=== PATIENT | male | born 2000 | race African-American/Black ===

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

== ENCOUNTER 2019-04-28 17:50 | Emergency (ER) | payer BC ==
[~2019-04-28] VITALS: Ht 177.8 cm; Wt 77.3 kg
[2019-04-28 17:56] VITALS: TEMP 99.5
[2019-04-28] MEDS ORDERED: PRINIVIL10 MG PO (18:01)
[2019-04-28 18:20] LABS: BASO # 0.1 (0.0-0.2); BASO % 0.9 % (0.0-2.0); EOS % 0.5 % (0-4.0); GRAN # 3.9 (1.4-6.5); GRAN % 48.9 % (42.2-75.2); HEMATOCRIT 46.3 % (42.0-52.0); HEMOGLOBIN 16.5 g/dl (13.5-18.0); LYMPH # 3.2 (1.2-3.4); LYMPH % 39.7 % (20.0-51.0); MEAN CELL VOLUME 80 fl (80.0-100.0); MEAN CORPUSCULAR HEMOGLOBIN 28 pg (27.0-31.0); MEAN CORPUSCULAR HGB CONC 36 g/dl (33.0-37.0); MEAN PLATELET VOLUME 10.9 fl (7.4-10.4); MONO # 0.8 (0.1-0.6); MONO % 9.6 % (1.7-9.3); PLATELET COUNT 261 K/mm3 (130-400); REDCELL DISTRIBUTION WIDTH-CV 11.9 % (11.5-14.5)
[2019-04-28 18:33] LABS: ALANINE AMINOTRANSFERASE 147 U/L (21-72); ALBUMIN 4.7 gm/dL (3.5-5.0); ALKALINE PHOSPHATASE 92 U/L (50-136); ANION GAP 11 mmol/L (7-16); AST,SGOT 69 U/L (15-37); BILIRUBIN,TOTAL 1.9 mg/dL (0.0-1.0); BLOOD UREA NITROGEN 13 mg/dL (9-20); C-REACTIVE PROTEIN < 0.5 mg/dL (0.0-0.9); CALCIUM 9.7 mg/dL (8.4-10.2); CARBON DIOXIDE 30 mmol/L (22-30); CHLORIDE 95 mmol/L (98-107); CREATININE, serum 1.12 (0.66-1.25); GLUCOSE 101 mg/dL (74-106); LIPASE 101 U/L (23-300); POTASSIUM 3.5 mmol/L (3.4-5.0); SODIUM 136 mmol/L (137-145); TOTAL PROTEIN 8.2 gm/dL (6.4-8.2)
[2019-04-28 19:01] LABS: COLLECTION METHOD CLEAN CATCH
[2019-04-28 19:10] LABS: MUCOUS Present /lpf; PH 6 (5-8); SQUAMOUS EPITHELIAL 0-2 /hpf; URINE APPEARANCE Hazy; URINE BACTERIA None Seen /hpf; URINE BILIRUBIN Negative (NEGATIVE); URINE BLOOD Negative (NEGATIVE); URINE COLOR Amber; URINE GLUCOSE Negative (NEGATIVE); URINE KETONE Trace (NEGATIVE); URINE LEUKOCYTE ESTERASE Negative (NEGATIVE); URINE NITRATE Negative (NEGATIVE); URINE PROTEIN(semi-quant) 1+ (NEGATIVE); URINE RBC 0-2 /hpf; URINE UROBILINOGEN >=4.0 mg/dL (NEGATIVE)
[2019-04-28] MEDS ORDERED: ZOFRAN 4MG T4 MG/TAB PO (20:09)
[2019-04-28] MEDS ORDERED: PRILOTC PO (20:09)
[2019-04-28] MEDS ORDERED: CEPHALEXIN500 M1 PO (20:10)
[2019-04-28 20:31] VITALS: BP 170/99; PULSE 48
== END 2019-04-28 20:33 | disposition home or self-care (01) ==
LOC: COL.ER 17:50
PROVIDERS: Emergency Medicine
DX: R11.2 Nausea with vomiting, unspecified (principal); R74.0 Nonspecific elevation of levels of transaminase and lactic acid dehydrogenase [LDH]; I10 Essential (primary) hypertension
CPT/HCPCS: A4216; J0696; J2405; J7030

== ENCOUNTER 2019-06-11 12:21 | Emergency (ER) | payer SELFPAY ==
[~2019-06-11] VITALS: Ht 175.3 cm; Wt 84.1 kg
[~2019-06-11 12:21] MED LIST: CEPHALEXIN500 M1 PO; PRILOTC PO; PRINIVIL10 MG PO; ZOFRAN 4MG T4 MG/TAB PO
[2019-06-11 12:28] VITALS: TEMP 98
[2019-06-11 13:10] LABS: COLLECTION METHOD CLEAN CATCH
[2019-06-11 13:12] LABS: BASO % 0.4 % (0.0-2.0); GRAN # 6.3 (1.4-6.5); HEMATOCRIT 47.2 % (42.0-52.0); HEMOGLOBIN 16.2 g/dl (13.5-18.0); LYMPH # 1.7 (1.2-3.4); LYMPH % 20.3 % (20.0-51.0); MEAN CELL VOLUME 84 fl (80.0-100.0); MEAN CORPUSCULAR HEMOGLOBIN 29 pg (27.0-31.0); MEAN CORPUSCULAR HGB CONC 34 g/dl (33.0-37.0); MEAN PLATELET VOLUME 11.2 fl (7.4-10.4); MONO # 0.3 (0.1-0.6); MONO % 3.9 % (1.7-9.3); PLATELET COUNT 203 K/mm3 (130-400); RED BLOOD COUNT 5.65 M/mm3 (4.20-5.60); REDCELL DISTRIBUTION WIDTH-CV 12.6 % (11.5-14.5)
[2019-06-11 13:17] LABS: MUCOUS Present /lpf; PH 6 (5-8); SQUAMOUS EPITHELIAL 0-2 /hpf; URINE APPEARANCE Clear; URINE BACTERIA None Seen /hpf; URINE BILIRUBIN Negative (NEGATIVE); URINE BLOOD Negative (NEGATIVE); URINE COLOR Yellow; URINE GLUCOSE Negative (NEGATIVE); URINE KETONE 2+ (NEGATIVE); URINE LEUKOCYTE ESTERASE Negative (NEGATIVE); URINE NITRATE Negative (NEGATIVE); URINE PROTEIN(semi-quant) 2+ (NEGATIVE); URINE UROBILINOGEN >=4.0 mg/dL (NEGATIVE)
[2019-06-11 13:37] LABS: ALANINE AMINOTRANSFERASE 20 U/L (21-72); ALBUMIN 4.9 gm/dL (3.5-5.0); ALKALINE PHOSPHATASE 97 U/L (50-136); ANION GAP 12 mmol/L (7-16); AST,SGOT 36 U/L (15-37); BILIRUBIN,TOTAL 1.4 mg/dL (0.0-1.0); BLOOD UREA NITROGEN 12 mg/dL (9-20); CALCIUM 9.9 mg/dL (8.4-10.2); CARBON DIOXIDE 23 mmol/L (22-30); CHLORIDE 105 mmol/L (98-107); CREATININE, serum 0.86 (0.66-1.25); GLUCOSE 102 mg/dL (74-106); LIPASE 101 U/L (23-300); POTASSIUM 4.2 mmol/L (3.4-5.0); SODIUM 139 mmol/L (137-145); TOTAL PROTEIN 8.3 gm/dL (6.4-8.2)
[2019-06-11 13:41] LABS: C-REACTIVE PROTEIN < 0.5 mg/dL (0.0-0.9)
[2019-06-11] MEDS ORDERED: ZOFRAN ODT4 MG PO (13:52)
[2019-06-11] MEDS ORDERED: PRILOSEC 20MG20 MG PO (13:52)
[2019-06-11 14:01] VITALS: BP 170/101; PULSE 42
== END 2019-06-11 14:06 | disposition home or self-care (01) ==
LOC: COL.ER 12:21
PROVIDERS: Family Medicine
DX: I10 Essential (primary) hypertension (principal); K29.70 Gastritis, unspecified, without bleeding
CPT/HCPCS: C9113; J2405; J7030

== ENCOUNTER 2019-06-15 20:51 | Emergency (ER) | payer SELFPAY ==
[~2019-06-15] VITALS: Ht 175.3 cm; Wt 77.3 kg
[~2019-06-15 20:51] MED LIST changes: +PRILOSEC 20MG20 MG PO; +ZOFRAN ODT4 MG PO
[2019-06-15 21:03] VITALS: BP 151/93; TEMP 97.7
[2019-06-15 23:41] LABS: BASO % 0.5 % (0.0-2.0); EOS % 0.1 % (0-4.0); GRAN # 4.6 (1.4-6.5); GRAN % 58.9 % (42.2-75.2); HEMATOCRIT 50.3 % (42.0-52.0); HEMOGLOBIN 17.4 g/dl (13.5-18.0); LYMPH # 1.9 (1.2-3.4); LYMPH % 24.2 % (20.0-51.0); MEAN CELL VOLUME 83 fl (80.0-100.0); MEAN CORPUSCULAR HEMOGLOBIN 29 pg (27.0-31.0); MEAN CORPUSCULAR HGB CONC 35 g/dl (33.0-37.0); MEAN PLATELET VOLUME 11.6 fl (7.4-10.4); MONO # 1.2 (0.1-0.6); MONO % 15.7 % (1.7-9.3); PLATELET COUNT 222 K/mm3 (130-400); RED BLOOD COUNT 6.07 M/mm3 (4.20-5.60); REDCELL DISTRIBUTION WIDTH-CV 12.7 % (11.5-14.5)
[2019-06-15 23:47] LABS: ALANINE AMINOTRANSFERASE 16 U/L (21-72); ALBUMIN 4.9 gm/dL (3.5-5.0); ALKALINE PHOSPHATASE 83 U/L (50-136); ANION GAP 11 mmol/L (7-16); AST,SGOT 24 U/L (15-37); BLOOD UREA NITROGEN 23 mg/dL (9-20); C-REACTIVE PROTEIN < 0.5 mg/dL (0.0-0.9); CALCIUM 9.9 mg/dL (8.4-10.2); CARBON DIOXIDE 25 mmol/L (22-30); CHLORIDE 103 mmol/L (98-107); CREATININE, serum 1.09 (0.66-1.25); GLUCOSE 99 mg/dL (74-106); LIPASE 347 U/L (23-300); POTASSIUM 3.6 mmol/L (3.4-5.0); SODIUM 139 mmol/L (137-145); TOTAL PROTEIN 8.3 gm/dL (6.4-8.2)
[2019-06-16] MEDS ORDERED: NORCO 325 MG-51 TAB PO (00:39)
[2019-06-16] MEDS ORDERED: ZOFRAN ODT4 MG PO (00:40)
[2019-06-16 00:52] VITALS: PULSE 53
== END 2019-06-16 00:52 | disposition home or self-care (01) ==
LOC: COL.ER 20:51
PROVIDERS: Nurse Practitioner
DX: K85.90 Acute pancreatitis without necrosis or infection, unspecified (principal); I10 Essential (primary) hypertension; Z87.891 Personal history of nicotine dependence
CPT/HCPCS: J2405; J7030

== ENCOUNTER 2019-07-23 09:14 | Emergency (ER) | payer SELFPAY ==
[~2019-07-23] VITALS: Ht 177.8 cm; Wt 81.8 kg
[~2019-07-23 09:14] MED LIST changes: +NORCO 325 MG-51 TAB PO
[2019-07-23 09:27] VITALS: TEMP 98.4
[2019-07-23] MEDS ORDERED: CEPHALEXIN500 M1 PO (09:31)
[2019-07-23] MEDS ORDERED: ZOFRAN ODT8 MG PO (09:43)
[2019-07-23 10:29] LABS: BASO % 0.3 % (0.0-2.0); GRAN # 6.7 (1.4-6.5); GRAN % 70.8 % (42.2-75.2); HEMATOCRIT 48.1 % (42.0-52.0); HEMOGLOBIN 16.8 g/dl (13.5-18.0); LYMPH # 2.1 (1.2-3.4); LYMPH % 22.5 % (20.0-51.0); MEAN CELL VOLUME 83 fl (80.0-100.0); MEAN CORPUSCULAR HEMOGLOBIN 29 pg (27.0-31.0); MEAN CORPUSCULAR HGB CONC 35 g/dl (33.0-37.0); MEAN PLATELET VOLUME 11.9 fl (7.4-10.4); MONO # 0.6 (0.1-0.6); PLATELET COUNT 232 K/mm3 (130-400); RED BLOOD COUNT 5.77 M/mm3 (4.20-5.60); REDCELL DISTRIBUTION WIDTH-CV 12.4 % (11.5-14.5)
[2019-07-23 10:36] LABS: ALANINE AMINOTRANSFERASE 27 U/L (21-72); ALBUMIN 5.2 gm/dL (3.5-5.0); ALKALINE PHOSPHATASE 86 U/L (50-136); ANION GAP 13 mmol/L (7-16); AST,SGOT 34 U/L (15-37); BILIRUBIN,TOTAL 2.1 mg/dL (0.0-1.0); BLOOD UREA NITROGEN 17 mg/dL (9-20); CALCIUM 10.1 mg/dL (8.4-10.2); CARBON DIOXIDE 23 mmol/L (22-30); CHLORIDE 105 mmol/L (98-107); CREATININE, serum 0.92 (0.66-1.25); GLUCOSE 106 mg/dL (74-106); LIPASE 150 U/L (23-300); POTASSIUM 4.3 mmol/L (3.4-5.0); SODIUM 141 mmol/L (137-145); TOTAL PROTEIN 8.9 gm/dL (6.4-8.2)
[2019-07-23 10:37] LABS: C-REACTIVE PROTEIN < 0.5 mg/dL (0.0-0.9)
[2019-07-23 11:00] VITALS: BP 177/101; PULSE 47
== END 2019-07-23 11:00 | disposition home or self-care (01) ==
LOC: COL.ER 09:14
PROVIDERS: Emergency Medicine
DX: R11.10 Vomiting, unspecified (principal); R19.7 Diarrhea, unspecified; I10 Essential (primary) hypertension
CPT/HCPCS: C9113; J2405; J7030

== ENCOUNTER 2021-03-25 10:52 | Emergency (ER) | payer SELFPAY ==
[~2021-03-25] VITALS: Ht 175.3 cm; Wt 81.8 kg
[~2021-03-25 10:52] MED LIST changes: +ZOFRAN ODT8 MG PO
[2021-03-25 11:18] VITALS: TEMP 98.3
[2021-03-25 11:55] LABS: BASO % 0.3 % (0.0-2.0); EOS % 0.1 % (0-4.0); GRAN # 6.8 (1.4-6.5); GRAN % 71.2 % (42.2-75.2); HEMATOCRIT 47.4 % (42.0-52.0); HEMOGLOBIN 16.3 g/dl (13.5-18.0); LYMPH % 20.6 % (20.0-51.0); MEAN CELL VOLUME 82 fl (80.0-100.0); MEAN CORPUSCULAR HEMOGLOBIN 28 pg (27.0-31.0); MEAN CORPUSCULAR HGB CONC 34 g/dl (33.0-37.0); MEAN PLATELET VOLUME 11.3 fl (7.4-10.4); MONO # 0.7 (0.1-0.6); MONO % 7.4 % (1.7-9.3); PLATELET COUNT 257 K/mm3 (130-400); RED BLOOD COUNT 5.75 M/mm3 (4.20-5.60); REDCELL DISTRIBUTION WIDTH-CV 12.8 % (11.5-14.5)
[2021-03-25 11:59] LABS: BILIRUBIN,TOTAL 1.3 mg/dL (0.0-1.0); CALCIUM 10.3 mg/dL (8.4-10.2); CREATININE, serum 0.95 (0.66-1.25); POTASSIUM 4.4 mmol/L (3.4-5.0)
[2021-03-25 12:22] LABS: C-REACTIVE PROTEIN 0.6 mg/dL (0.0-0.9)
[2021-03-25] MEDS ORDERED: PRINIVIL10 MG PO (12:38)
[2021-03-25] MEDS ORDERED: ZOFRAN ODT4 MG PO (12:38)
[2021-03-25 14:54] VITALS: BP 146/97; PULSE 45
== END 2021-03-25 14:55 | disposition home or self-care (01) ==
LOC: COL.ER 10:52
PROVIDERS: Nurse Practitioner
DX: R11.2 Nausea with vomiting, unspecified (principal); I10 Essential (primary) hypertension
CPT/HCPCS: J2405; J7030

== ENCOUNTER 2021-10-05 15:57 | Emergency (ER) | payer SELFPAY ==
[~2021-10-05] VITALS: Ht 177.8 cm; Wt 93.2 kg
[2021-10-05 16:46] VITALS: TEMP 98.1
[2021-10-05 17:19] LABS: BASO % 0.3 % (0.0-2.0); GRAN # 8.7 K/mm3 (1.4-6.5); GRAN % 71.6 % (42.2-75.2); HEMATOCRIT 51.9 % (42.0-52.0); HEMOGLOBIN 17.9 g/dl (13.5-18.0); LYMPH # 2.4 K/mm3 (1.2-3.4); LYMPH % 19.7 % (20.0-51.0); MEAN CELL VOLUME 83 fl (80.0-100.0); MEAN CORPUSCULAR HEMOGLOBIN 29 pg (27-31); MEAN CORPUSCULAR HGB CONC 35 g/dl (33.0-37.0); MEAN PLATELET VOLUME 11.2 fl (7.4-10.4); MONO % 8.2 % (1.7-9.3); PLATELET COUNT 232 K/mm3 (130-400); RED BLOOD COUNT 6.29 M/mm3 (4.20-5.60); REDCELL DISTRIBUTION WIDTH-CV 12.8 % (11.5-14.5)
[2021-10-05 17:39] LABS: ALBUMIN 5.1 gm/dL (3.5-5.0); C-REACTIVE PROTEIN 0.11 mg/dL (0.00-0.50); CALCIUM 10.1 mg/dL (8.4-10.2); CREATININE, serum 1.37 mg/dL (0.72-1.25); POTASSIUM 4.7 mmol/L (3.5-4.5); TOTAL PROTEIN 8.8 gm/dL (6.2-8.1)
[2021-10-05 19:09] LABS: COLLECTION METHOD CLEAN CATCH
[2021-10-05 19:21] LABS: TRICYCLIC ANTIDEPRESS URINE NEGATIVE
[2021-10-05 19:22] VITALS: BP 142/112; PULSE 46
[2021-10-05 19:24] LABS: MUCOUS Present (NOT PRESENT); PH 5 (5-8); SQUAMOUS EPITHELIAL 0-2 /hpf (0-10); URINE APPEARANCE Hazy (CLEAR/HAZY); URINE BACTERIA None Seen /hpf (NONE SEEN); URINE BILIRUBIN Positive (NEGATIVE); URINE BLOOD 1+ (NEGATIVE); URINE COLOR Amber (YELLOW); URINE GLUCOSE Negative (NEGATIVE); URINE KETONE Trace (NEGATIVE); URINE LEUKOCYTE ESTERASE Negative (NEGATIVE); URINE NITRATE Negative (NEGATIVE); URINE PROTEIN(semi-quant) 2+ (NEGATIVE); URINE RBC 0-2 /hpf (0-2); URINE UROBILINOGEN >=4.0 (NEGATIVE)
[2021-10-05] MEDS ORDERED: PRINIVIL10 MG PO (19:32)
[2021-10-05] MEDS ORDERED: ZOFRAN ODT4 MG PO (19:32)
== END 2021-10-05 19:43 | disposition home or self-care (01) ==
LOC: COL.ER 15:57
PROVIDERS: Nurse Practitioner
DX: I10 Essential (primary) hypertension (principal); R11.2 Nausea with vomiting, unspecified; F17.200 Nicotine dependence, unspecified, uncomplicated
CPT/HCPCS: J2405; J7030

== ENCOUNTER 2021-11-28 16:04 | Emergency (ER) | payer SELFPAY ==
[~2021-11-28] VITALS: Ht 175.3 cm; Wt 90.9 kg
[2021-11-28 16:55] LABS: BASO % 0.3 % (0.0-2.0); GRAN # 8.8 K/mm3 (1.4-6.5); GRAN % 75.7 % (42.2-75.2); HEMATOCRIT 49.2 % (42.0-52.0); HEMOGLOBIN 17.2 g/dl (13.5-18.0); LYMPH % 17.2 % (20.0-51.0); MEAN CELL VOLUME 80 fl (80.0-100.0); MEAN CORPUSCULAR HEMOGLOBIN 28 pg (27-31); MEAN CORPUSCULAR HGB CONC 35 g/dl (33.0-37.0); MONO # 0.8 K/mm3 (0.1-0.6); MONO % 6.5 % (1.7-9.3); PLATELET COUNT 316 K/mm3 (130-400); RED BLOOD COUNT 6.12 M/mm3 (4.20-5.60); REDCELL DISTRIBUTION WIDTH-CV 12.2 % (11.5-14.5)
[2021-11-28 17:08] LABS: ALBUMIN 5.1 gm/dL (3.5-5.0); BILIRUBIN,TOTAL 1.3 mg/dL (0.2-1.2); CALCIUM 10.1 mg/dL (8.4-10.2); CREATININE, serum 1.2 mg/dL (0.72-1.25); POTASSIUM 3.8 mmol/L (3.5-4.5); TOTAL PROTEIN 8.8 gm/dL (6.2-8.1)
[2021-11-28 17:17] LABS: TRICYCLIC ANTIDEPRESS URINE NEGATIVE
[2021-11-28] MEDS ORDERED: ZOFRAN ODT4 MG PO (17:55)
[2021-11-28 18:09] VITALS: BP 172/96; PULSE 48; TEMP 98.1
== END 2021-11-28 18:09 | disposition home or self-care (01) ==
LOC: COL.ER 16:04
PROVIDERS: Personal Emergency Response Attendant
DX: R11.2 Nausea with vomiting, unspecified (principal)
CPT/HCPCS: J7030

== ENCOUNTER 2022-04-21 09:32 | Emergency (ER) | payer OTHER ==
[~2022-04-21] VITALS: Ht 175.3 cm; Wt 86.4 kg
[2022-04-21 09:44] VITALS: TEMP 98.1
[2022-04-21 10:27] LABS: COLLECTION METHOD CLEAN CATCH
[2022-04-21 10:32] LABS: BASO % 0.2 % (0.0-2.0); GRAN # 9.9 K/mm3 (1.4-6.5); GRAN % 75.1 % (42.2-75.2); HEMATOCRIT 51.2 % (42.0-52.0); HEMOGLOBIN 17.5 g/dl (13.5-18.0); LYMPH # 2.4 K/mm3 (1.2-3.4); MEAN CELL VOLUME 82 fl (80.0-100.0); MEAN CORPUSCULAR HEMOGLOBIN 28 pg (27-31); MEAN CORPUSCULAR HGB CONC 34 g/dl (33.0-37.0); MEAN PLATELET VOLUME 11.5 fl (7.4-10.4); MONO # 0.8 K/mm3 (0.1-0.6); MONO % 6.3 % (1.7-9.3); PLATELET COUNT 275 K/mm3 (130-400); RED BLOOD COUNT 6.27 M/mm3 (4.20-5.60); REDCELL DISTRIBUTION WIDTH-CV 12.2 % (11.5-14.5)
[2022-04-21 10:38] LABS: MUCOUS Present (NOT PRESENT); SQUAMOUS EPITHELIAL None Seen /hpf (0-10); URINE BACTERIA Rare /hpf (NONE SEEN)
[2022-04-21 10:39] LABS: URINE APPEARANCE Clear (CLEAR/HAZY); URINE COLOR Amber (YELLOW)
[2022-04-21 10:40] LABS: URINE BLOOD 1+ (NEGATIVE); URINE GLUCOSE Negative (NEGATIVE); URINE KETONE 2+ (NEGATIVE); URINE NITRATE Negative (NEGATIVE); URINE PROTEIN(semi-quant) 2+ (NEGATIVE); URINE UROBILINOGEN 0.2 E.U/dL (0.2-1.0)
[2022-04-21 10:54] LABS: TRICYCLIC ANTIDEPRESS URINE NEGATIVE
[2022-04-21] MEDS ORDERED: PRINIVIL20 MG PO (11:09)
[2022-04-21] MEDS ORDERED: PROMETHAZINE12.5 M5 PO (11:11)
[2022-04-21 11:21] LABS: ALBUMIN 4.8 gm/dL (3.5-5.0); BILIRUBIN,TOTAL 1.5 mg/dL (0.2-1.2); CALCIUM 9.9 mg/dL (8.4-10.2); CREATININE, serum 1.21 mg/dL (0.72-1.25); POTASSIUM 4.7 mmol/L (3.5-4.5); TOTAL PROTEIN 8.3 gm/dL (6.2-8.1)
[2022-04-21 11:30] VITALS: BP 179/125; PULSE 78
== END 2022-04-21 11:30 | disposition home or self-care (01) ==
LOC: COL.ER 09:32
PROVIDERS: Personal Emergency Response Attendant; Physician Assistant
DX: R11.2 Nausea with vomiting, unspecified (principal); I10 Essential (primary) hypertension; R00.1 Bradycardia, unspecified; Z28.310 Unvaccinated for COVID-19
CPT/HCPCS: J0360; J2550; J7030

== ENCOUNTER 2022-11-20 08:13 | Emergency (ER) | payer OTHER ==
[~2022-11-20] VITALS: Ht 175.3 cm; Wt 86.4 kg
[~2022-11-20 08:13] MED LIST changes: +PRINIVIL20 MG PO; +PROMETHAZINE12.5 M5 PO; +ZESTRIL 10MG10 MG PO
[2022-11-20 08:17] VITALS: BP 144/92; TEMP 97.6
[2022-11-20 08:44] LABS: COLLECTION METHOD CLEAN CATCH
[2022-11-20 08:48] LABS: BASO % 0.3 % (0.0-2.0); GRAN # 10.5 K/mm3 (1.4-6.5); GRAN % 79.2 % (42.2-75.2); HEMOGLOBIN 17.6 g/dl (13.5-18.0); LYMPH # 1.8 K/mm3 (1.2-3.4); LYMPH % 13.5 % (20.0-51.0); MEAN CELL VOLUME 81 fl (80.0-100.0); MEAN CORPUSCULAR HEMOGLOBIN 28 pg (27-31); MEAN CORPUSCULAR HGB CONC 35 g/dl (33.0-37.0); MEAN PLATELET VOLUME 11.8 fl (7.4-10.4); MONO # 0.9 K/mm3 (0.1-0.6); MONO % 6.5 % (1.7-9.3); PLATELET COUNT 264 K/mm3 (130-400); RED BLOOD COUNT 6.21 M/mm3 (4.20-5.60); REDCELL DISTRIBUTION WIDTH-CV 12.6 % (11.5-14.5)
[2022-11-20 08:53] LABS: MUCOUS Present (NOT PRESENT); SQUAMOUS EPITHELIAL 0-2 /hpf (0-10); URINE APPEARANCE Hazy (CLEAR/HAZY); URINE BACTERIA Rare /hpf (NONE SEEN); URINE COLOR Amber (YELLOW); URINE GLUCOSE Negative (NEGATIVE); URINE PROTEIN(semi-quant) 3+ (NEGATIVE)
[2022-11-20 08:54] LABS: URINE BLOOD TRACE-INTACT (NEGATIVE); URINE KETONE 3+ (NEGATIVE); URINE NITRATE Negative (NEGATIVE)
[2022-11-20 09:07] LABS: ALBUMIN 5.1 gm/dL (3.5-5.0); BILIRUBIN,TOTAL 1.4 mg/dL (0.2-1.2); C-REACTIVE PROTEIN 0.08 mg/dL (0.00-0.50); CALCIUM 10.1 mg/dL (8.4-10.2); CREATININE, serum 1.24 mg/dL (0.72-1.25); POTASSIUM 3.7 mmol/L (3.5-4.5); TOTAL PROTEIN 8.5 gm/dL (6.2-8.1)
[2022-11-20] MEDS ORDERED: ZOFRAN ODT4 MG PO (09:12)
[2022-11-20 09:43] VITALS: PULSE 44
== END 2022-11-20 09:43 | disposition home or self-care (01) ==
LOC: COL.ER 08:13
PROVIDERS: Family Medicine
DX: R11.2 Nausea with vomiting, unspecified (principal); Z28.310 Unvaccinated for COVID-19
CPT/HCPCS: J2405; J7120

== ENCOUNTER 2022-12-25 12:09 | Emergency (ER) | payer OTHER ==
[~2022-12-25] VITALS: Ht 177.8 cm; Wt 86.4 kg
[2022-12-25 12:13] VITALS: TEMP 98.1
[2022-12-25 12:47] LABS: BASO % 0.3 % (0.0-2.0); GRAN # 9.3 K/mm3 (1.4-6.5); GRAN % 78.9 % (42.2-75.2); HEMATOCRIT 48.7 % (42.0-52.0); HEMOGLOBIN 16.5 g/dl (13.5-18.0); LYMPH # 1.7 K/mm3 (1.2-3.4); LYMPH % 14.7 % (20.0-51.0); MEAN CELL VOLUME 83 fl (80.0-100.0); MEAN CORPUSCULAR HEMOGLOBIN 28 pg (27-31); MEAN CORPUSCULAR HGB CONC 34 g/dl (33.0-37.0); MEAN PLATELET VOLUME 11.2 fl (7.4-10.4); MONO # 0.7 K/mm3 (0.1-0.6); MONO % 5.8 % (1.7-9.3); PLATELET COUNT 267 K/mm3 (130-400); RED BLOOD COUNT 5.89 M/mm3 (4.20-5.60); REDCELL DISTRIBUTION WIDTH-CV 12.3 % (11.5-14.5)
[2022-12-25 13:07] LABS: ALBUMIN 4.8 gm/dL (3.5-5.0); BILIRUBIN,TOTAL 1.1 mg/dL (0.2-1.2); CALCIUM 10.2 mg/dL (8.4-10.2); POTASSIUM 3.8 mmol/L (3.5-4.5); TOTAL PROTEIN 8.2 gm/dL (6.2-8.1)
[2022-12-25] MEDS ORDERED: ZOFRAN ODT4 MG PO (14:14)
[2022-12-25 14:36] VITALS: BP 170/104; PULSE 46
== END 2022-12-25 14:36 | disposition home or self-care (01) ==
LOC: COL.ER 12:09
PROVIDERS: Emergency Medicine
DX: R11.2 Nausea with vomiting, unspecified (principal); F12.10 Cannabis abuse, uncomplicated; D72.829 Elevated white blood cell count, unspecified; Z28.310 Unvaccinated for COVID-19
CPT/HCPCS: J2405; J7120

== ENCOUNTER 2023-07-19 08:24 | Emergency (ER) | payer OTHER ==
[~2023-07-19] VITALS: Ht 177.8 cm; Wt 90.9 kg
[2023-07-19 08:31] VITALS: TEMP 98.5
[2023-07-19 09:07] LABS: ALBUMIN 4.9 gm/dL (3.5-5.0); BILIRUBIN,TOTAL 1.5 mg/dL (0.2-1.2); CALCIUM 9.8 mg/dL (8.4-10.2); CREATININE, serum 1.05 mg/dL (0.72-1.25); POTASSIUM 3.7 mmol/L (3.5-4.5); TOTAL PROTEIN 8.2 gm/dL (6.2-8.1)
[2023-07-19] MEDS ORDERED: ZOFRAN ODT4 MG PO (09:28)
[2023-07-19 09:34] VITALS: BP 164/110; PULSE 47
== END 2023-07-19 09:39 | disposition home or self-care (01) ==
LOC: COL.ER 08:24
PROVIDERS: Emergency Medicine
DX: R11.2 Nausea with vomiting, unspecified (principal); F12.10 Cannabis abuse, uncomplicated
CPT/HCPCS: J2405; J7120

== ENCOUNTER 2023-09-05 17:33 | Emergency (ER) | payer SELFPAY ==
[~2023-09-05] VITALS: Ht 177.8 cm; Wt 88.6 kg
[2023-09-05 17:43] VITALS: TEMP 98.1
[2023-09-05] MEDS ORDERED: Haloperidol Lactate 5 MG/ML VIAL IV ONE (18:00)
[2023-09-05] MEDS ORDERED: NS 1,000 ML IV ONE (18:00)
[2023-09-05 18:09] LABS: BASO % 0.3 % (0.0-2.0); GRAN # 8.7 K/mm3 (1.4-6.5); GRAN % 75.2 % (42.2-75.2); HEMATOCRIT 47.9 % (42.0-52.0); HEMOGLOBIN 16.7 g/dl (13.5-18.0); LYMPH # 2.1 K/mm3 (1.2-3.4); LYMPH % 18.3 % (20.0-51.0); MEAN CELL VOLUME 82 fl (80.0-100.0); MEAN CORPUSCULAR HEMOGLOBIN 29 pg (27-31); MEAN CORPUSCULAR HGB CONC 35 g/dl (33.0-37.0); MEAN PLATELET VOLUME 11.1 fl (7.4-10.4); MONO # 0.7 K/mm3 (0.1-0.6); MONO % 5.9 % (1.7-9.3); PLATELET COUNT 269 K/mm3 (130-400); RED BLOOD COUNT 5.84 M/mm3 (4.20-5.60); REDCELL DISTRIBUTION WIDTH-CV 12.3 % (11.5-14.5)
[2023-09-05 18:29] LABS: ALBUMIN 4.8 gm/dL (3.5-5.0); BILIRUBIN,TOTAL 1.1 mg/dL (0.2-1.2); C-REACTIVE PROTEIN 0.23 mg/dL (0.00-0.50); CALCIUM 10.4 mg/dL (8.4-10.2); CREATININE, serum 1.08 mg/dL (0.72-1.25); POTASSIUM 3.9 mmol/L (3.5-4.5); TOTAL PROTEIN 8.3 gm/dL (6.2-8.1)
[2023-09-05] MEDS ORDERED: diphenhydrAMINE 50 MG/ML 1 ML VIAL IV ONE (18:45)
[2023-09-05 19:28] LABS: COLLECTION METHOD CLEAN CATCH
[2023-09-05] MEDS ORDERED: Home Ondansetron ODT 4 MG #2 ODT/PACK PO ONE (19:30)
[2023-09-05 20:02] LABS: MUCOUS Present (NOT PRESENT); URINE APPEARANCE Cloudy (CLEAR/HAZY); URINE BLOOD TRACE-INTACT (NEGATIVE); URINE COLOR Amber (YELLOW); URINE GLUCOSE Negative (NEGATIVE); URINE KETONE 4+ (NEGATIVE); URINE NITRATE Negative (NEGATIVE); URINE PROTEIN(semi-quant) 2+ (NEGATIVE)
[2023-09-05 20:20] VITALS: BP 158/74; PULSE 54
== END 2023-09-05 20:20 | disposition home or self-care (01) ==
LOC: COL.ER 17:33
PROVIDERS: Nurse Practitioner
DX: R11.2 Nausea with vomiting, unspecified (principal); F12.90 Cannabis use, unspecified, uncomplicated; F17.290 Nicotine dependence, other tobacco product, uncomplicated
CPT/HCPCS: J1200; J1630; J7030

== ENCOUNTER 2024-02-21 09:25 | Emergency (ER) | payer BC ==
[~2024-02-21] VITALS: Ht 175.3 cm; Wt 95.5 kg
[~2024-02-21 09:25] MED LIST changes: +PROTONIX 40MG T40 MG PO; +REGLAN 10MG10 MG/TAB PO
[2024-02-21 09:47] VITALS: TEMP 98.8
[2024-02-21 10:27] LABS: BASO % 0.3 % (0.0-2.0); GRAN # 8.3 K/mm3 (1.4-6.5); GRAN % 76.8 % (42.2-75.2); HEMATOCRIT 48.9 % (42.0-52.0); HEMOGLOBIN 16.5 g/dl (13.5-18.0); LYMPH # 1.8 K/mm3 (1.2-3.4); LYMPH % 16.6 % (20.0-51.0); MEAN CELL VOLUME 80 fl (80.0-100.0); MEAN CORPUSCULAR HEMOGLOBIN 27 pg (27-31); MEAN CORPUSCULAR HGB CONC 34 g/dl (33.0-37.0); MEAN PLATELET VOLUME 11.4 fl (7.4-10.4); MONO # 0.6 K/mm3 (0.1-0.6); MONO % 5.9 % (1.7-9.3); PLATELET COUNT 273 K/mm3 (130-400); RED BLOOD COUNT 6.15 M/mm3 (4.20-5.60); REDCELL DISTRIBUTION WIDTH-CV 12.5 % (11.5-14.5)
[2024-02-21] MEDS ORDERED: NS 1,000 ML IV ONE (10:30)
[2024-02-21 10:42] LABS: BILIRUBIN,TOTAL 1.1 mg/dL (0.2-1.2); C-REACTIVE PROTEIN 0.09 mg/dL (0.00-0.50); CALCIUM 10.4 mg/dL (8.4-10.2); CREATININE, serum 1.06 mg/dL (0.72-1.25); POTASSIUM 3.9 mEq/L (3.5-4.5); TOTAL PROTEIN 8.2 g/dl (6.2-8.1)
[2024-02-21] MEDS ORDERED: diphenhydrAMINE 50 MG/ML 1 ML VIAL IV ONE (11:30)
[2024-02-21 12:56] VITALS: BP 162/112; PULSE 96
== END 2024-02-21 13:15 | disposition home or self-care (01) ==
LOC: COL.ER 09:25
PROVIDERS: Nurse Practitioner
DX: R11.2 Nausea with vomiting, unspecified (principal); F12.90 Cannabis use, unspecified, uncomplicated
CPT/HCPCS: J1200; J2765; J7030

== ENCOUNTER 2024-04-04 19:24 | Emergency (ER) | payer BC ==
[~2024-04-04] VITALS: Ht 175.3 cm; Wt 90.9 kg
[2024-04-04 19:31] VITALS: TEMP 98.4
[2024-04-04] MEDS ORDERED: NS 1,000 ML IV ONE (19:45)
[2024-04-04] MEDS ORDERED: Ondansetron 4 MG/2 ML VIAL IV ONE (19:45)
[2024-04-04 20:18] LABS: COLLECTION METHOD CLEAN CATCH
[2024-04-04 20:21] LABS: BASO % 0.4 % (0.0-2.0); GRAN % 72.9 % (42.2-75.2); HEMOGLOBIN 16.8 g/dl (13.5-18.0); LYMPH # 1.9 K/mm3 (1.2-3.4); MEAN CELL VOLUME 81 fl (80.0-100.0); MEAN CORPUSCULAR HEMOGLOBIN 28 pg (27-31); MEAN CORPUSCULAR HGB CONC 34 g/dl (33.0-37.0); MEAN PLATELET VOLUME 11.1 fl (7.4-10.4); MONO # 0.6 K/mm3 (0.1-0.6); MONO % 6.4 % (1.7-9.3); PLATELET COUNT 245 K/mm3 (130-400); RED BLOOD COUNT 6.07 M/mm3 (4.20-5.60); REDCELL DISTRIBUTION WIDTH-CV 12.3 % (11.5-14.5)
[2024-04-04 20:29] LABS: PH 5.5 (5.0-8.5); URINE APPEARANCE CLEAR (CLEAR/HAZY); URINE BLOOD NEGATIVE (NEGATIVE); URINE COLOR Dark Yellow (YELLOW); URINE GLUCOSE NEGATIVE (NEGATIVE); URINE KETONE 2+ (NEGATIVE); URINE NITRATE NEGATIVE (NEGATIVE); URINE PROTEIN(semi-quant) 2+ (NEGATIVE)
[2024-04-04] MEDS ORDERED: ZOFRAN ODT4 MG PO (20:39)
[2024-04-04 20:42] LABS: BILIRUBIN,TOTAL 1.1 mg/dL (0.2-1.2); CALCIUM 9.8 mg/dL (8.4-10.2); CREATININE, serum 1.1 mg/dL (0.72-1.25); POTASSIUM 3.6 mEq/L (3.5-4.5); TOTAL PROTEIN 8.3 g/dl (6.2-8.1)
[2024-04-04 21:05] VITALS: BP 155/99; PULSE 56
== END 2024-04-04 21:05 | disposition home or self-care (01) ==
LOC: COL.ER 19:24
PROVIDERS: Nurse Practitioner Primary Care
DX: R11.2 Nausea with vomiting, unspecified (principal); F12.90 Cannabis use, unspecified, uncomplicated
CPT/HCPCS: J2405; J7030

== ENCOUNTER 2024-05-19 15:04 | Emergency (ER) | payer BC ==
[~2024-05-19] VITALS: Ht 175.3 cm; Wt 95.5 kg
[2024-05-19 15:12] VITALS: TEMP 98.1
[2024-05-19] MEDS ORDERED: NS 1,000 ML IV ONE (15:30)
[2024-05-19] MEDS ORDERED: Ondansetron 4 MG/2 ML VIAL IV ONE (15:30)
[2024-05-19 17:09] VITALS: BP 140/96; PULSE 51
== END 2024-05-19 17:09 | disposition home or self-care (01) ==
LOC: COL.ER 15:04
DX: R11.2 Nausea with vomiting, unspecified (principal); I10 Essential (primary) hypertension
CPT/HCPCS: J2405; J7030